=== PATIENT | female | born 1970 | race Caucasian/White ===

== ENCOUNTER → 2021-03-18 16:30 | Outpatient (CLI) | payer BC, SELFPAY ==
--- NOTE | ~2021-03-18 | XR_ITS ---
EXAMINATION: XR shoulder RT min 2V DATE: 03/18/2021 17:00 INDICATION: Right shoulder pain. TECHNIQUE: 4 views of right shoulder were obtained. COMPARISON: None. FINDINGS: Bone alignment is normal. No fracture. Glenohumeral joint and acromioclavicular joint are n ormal. There is calcific tendinitis of subscapularis. IMPRESSION: 1. Calcific tendinitis of the subscapularis. Reviewed, dictated and finalized at location A. N ELEVATOR AGENT
== END ==
PROVIDERS: PCP Physician Assistant Medical; Visit Provider Nurse Practitioner Family
DX: M25.519 Pain in unspecified shoulder (principal); M25.611 Stiffness of right shoulder, not elsewhere classified; M65.811 Other synovitis and tenosynovitis, right shoulder
CPT/HCPCS: 73030

== ENCOUNTER 2022-03-03 07:33 | Outpatient (CLI) | payer BC, SELFPAY ==
--- NOTE | 2022-03-03 07:46 | ECHO_ITS ---
Patient Info Name: Lashay Forbes Age: 51 years : 1970 Gender: Female Ht: 63 in Wt: 235 lbs BSA: 2.23 m2 HR: 72 bpm BP: 160 / 105 mmHg Technical Quality: Good Exam Date: 03/03/2022 8:19 AM Exam Location: [facility] Patient Status: Outpatient Admit Date: 03/03/2022 Staff Ordering Physician: Merna Montez PAC [employer]: Christopher Mei RDCS, RT Attending Provider: Merna Montez Referring Physician: Melida VILLARREAL; Exam Type: CA echo doppler color flow Study Info Indications R01.1 - Cardiac murmur, unspecified Complete two-dimensional, color flow and Doppler transthoracic echocardiogram is performed. Strain analysis performed. Summary 1. Complete two-dimensional, color flow and Doppler transthoracic echocardiogram is performed. 2. Left ventricular chamber dimension is normal. 3. Left ventricular systolic function is normal, estimated at 60-65%. 4. There is moderate concentric increased left ventricular wall thickness. 5. The left ventricular diastolic function is grade I diastolic dysfunction. 6. E/e' 8 is minimally elevated. 7. Global longitudinal strain is normal at -17.6%. 8. There is moderate aortic valve sclerosis. 9. The mitral valve has moderately calcified annulus. 10. There is trace tricuspid valve regurgitation. Left Ventricle E/e' 8 is minimally elevated. Global longitudinal strain is normal at -17.6%. Left ventricular chamber dimension is normal. Left ventricular systolic function is normal, estimated at 60-65%. There is moderate concentric increased left ventricular wall thickness. The left ventricular diastolic function is grade I diastolic dysfunction. Right Ventricle Right ventricular systolic function is normal and with normal TAPSE 2.5 cm. Right ventricular chamber dimension is normal. Left Atria Left atrial chamber dimension is normal. Right Atria Right atrial chamber dimension is normal. Aortic Valve The aortic valve is trileaflet. There is moderate aortic valve sclerosis. There is no aortic valve stenosis. There is no aortic valve regurgitation. Pulmonic Valve There is no pulmonic regurgitation. Mitral Valve The mitral valve has moderately calcified annulus. There is no mitral valve stenosis. There is no mitral valve regurgitation. Tricuspid Valve There is trace tricuspid valve regurgitation. RVSP is not calculated due to an inadequate TR jet. Pericardium/Pleural There is no pericardial effusion. Inferior Vena Cava Normal inferior vena cava with >50% collapse upon inspiration consistent with normal right atrial pressure, 5 mmHg. Aorta The aortic root size at the sinus of Valsalva is normal. Left Ventricular Outflow Tract Name Value Normal LVOT 2D LVOT Diameter 2.0 cm LVOT Doppler LVOT Peak Gradient 4 mmHg LVOT Mean Gradient 2 mmHg LVOT VTI 24 cm LVOT VTI/AV VTI Ratio 0.7 LVOT Stroke Volume 76 ml LVOT CO 5.1 l/min LVOT CI
== END 2022-03-03 07:34 | disposition home or self-care (01) ==
LOC: ANHCARD 07:36
PROVIDERS: PCP Family Medicine; Visit Provider Physician Assistant Medical
DX: R01.1 Cardiac murmur, unspecified (principal)
CPT/HCPCS: 93306

== ENCOUNTER 2023-12-15 10:42 | Emergency (ER) | payer BC, SELFPAY ==
--- NOTE | 2023-12-15 10:57 | ED.URI ---
HPI - URI/Sore Throat General Chief Complaint: Upper Respiratory Infection Stated Complaint: SINUS CONGESTION/HEADACHE/SORE THROAT/COUGH Time Seen by Provider: 12/15/23 11:07 Source: patient and RN notes reviewed Mode of arrival: ambulatory Limitations: no limitations History of Present Illness HPI Narrative: 53-year-old female with history of diabetes presented for complaint of headache, sore throat, body aches, sinus pressure/congestion, cough, fever/chills. Onset 2 days. She states yesterday during the day she felt much better, but was extremely fatigued last night. She took NyQuil. Denies sob, wheezing, n/v/d. Endorses sick contact with COVID. MD elicited complaint: cough Related Data Allergies Allergy/AdvReac Type Severity Reaction Status Date / Time No Known Allergies Allergy Verified 02/02/23 07:43 Review of Systems Review of Systems: CONSTITUTIONAL: Endorses malaise, denies chills, sweats, fever EYES: Denies visual changes, redness, or discharge ENT: Reports rhinorrhea, congestion, sinus pain, otalgia, sore throat CARDIOVASCULAR: Denies chest pain, palpitations, edema RESPIRATORY: Reports cough, post nasal drainage. Denies dyspnea GASTROINTESTINAL: Denies abdominal pain, nausea, vomiting, diarrhea SKIN: Denies rash or itching MUSCULOSKELETAL: Endorses myalgia NEUROLOGIC: endorses headache PMFSH Past Medical History Medical History BMI 39.0-39.9,adult Diabetes mellitus Hypertension Morbid obesity Surgical History Surgical History History of appendectomy History of Family History Family History Mother Family history of lung cancer, Onset Age: 56 Family history of malignant neoplasm of breast in first degree relative Patient's mother is , Onset Age: 56 Father Family history of type 2 diabetes mellitus, Onset Age: 79 Family history of heart disease in male family member before age 55, Onset Age: 79 Diabetes mellitus Family history of cardiovascular disease Other Acute myocardial infarction Social History Social History Smoking status: Never smoker Second hand tobacco smoke exposure: No Alcohol intake: current Substance use: never Substance use type: does not use Living arrangements: with family Occupation/Education: occupation Additional occupation/education comments: [employer] Gender identity (if verbalized by the patient): Female Exam Narrative: GENERAL: mildly Ill-appearing, nontoxic no acute distress. EYES: PERRLA, conjunctivae clear ENT: Mucous membranes moist. TM pearly beck with dull light reflex bilaterally; no tragal tenderness. Oropharynx not erythematous without lesions or exudate, no drooling, no hoarseness, no trismus, uvula midline. CHEST: Clear to auscultation, breath sounds equal. No wheezing, rhonchi, rales, or stridor. No respiratory distress, speaks in full sentences. HEART: Regular rate and rhythm. SKIN: Warm, dry, no rash. NEURO: Alert and oriented x3. PSYCH: Normal mood and affect Course Course Emergency Course: Patient is aware of diagnosis, understands and agrees to treatment plan. Anticipatory guidance given. Patient agrees to follow-up as directed and is aware of reasons to seek care at the emergency department. Portions of this record may have been created with voice recognition software Level of Care: Express Care Visit Vital Signs Vital signs: Vital Signs Temperature 99.1 F 12/15/23 10:58 Pulse Rate 90 12/15/23 10:58 Respiratory Rate 16 12/15/23 10:58 Blood Pressure 138/76 12/15/23 10:58 Pulse Oximetry 97 12/15/23 10:58 Temperature 99.1 F 12/15/23 10:58 Pulse Rate 90 12/15/23 10:58 Respiratory Rate 16 12/15/23 10:58 Blood Pressure 138/76
[2023-12-15 10:58] VITALS: BP 138/76; PULSE 90; RESP 16; TEMP 37.3; O2SAT 97
[2023-12-15 11:07] LABS: EDSTREPNEGPOS1 Presumptive Negative
== END 2023-12-15 11:14 | disposition home or self-care (01) ==
PROVIDERS: Emergency Provider Nurse Practitioner Family; PCP Physician Assistant Medical
DX: U07.1 COVID-19 (principal); E11.9 Type 2 diabetes mellitus without complications; I10 Essential (primary) hypertension; E66.01 Morbid (severe) obesity due to excess calories; Z68.39 Body mass index [BMI] 39.0-39.9, adult
CPT/HCPCS: 87081; 87426; 87880; 99213; G0463